=== PATIENT | male | born 2005 | race Caucasian/White ===

== ENCOUNTER 2025-02-06 12:30 | Outpatient (RCR) | payer OTHER, SELFPAY ==
[2025-01-24 09:36] VITALS: BMI 22.8
[2025-01-24 09:37] VITALS: BP 100/62; PULSE 60; TEMP 36.9
--- NOTE | 2025-01-24 10:28 | PC.ADMIT ---
Patient is a 19 year old single male who was referred to [facility] by [facility]. According to [facility] records patient presented to the ER after ingesting 120-140 tabs 40 mg each of Fluoxetine in a suicide attempt. Patient posted on social media that he took an overdose of Fluoxetine. He was initially admitted to ICU on 12/21/24 before he was transferred to [facility] inpatient behavioral health unit. While in the ER patient reportedly presented with full body rigidity and stiffness with myoclonic jerking/possible seizure activity. O2 sats in the low 80's. Patient was intubated and sent to ICU for further management. I asked patient what happened prior to hospitalization. Patient stated, I had overdosed because I did not want to be around anymore and felt like a burden to everyone and my family really wasn't listening. Patient reports hospitalization was, a little helpful mainly because I got to talk to people who have a similar mindset made me feel I was not alone . Patient reports he is doing much better and wants to do this program to make sure he stays this way. Patient reports he lives with grandparents, mother, and 4 brothers. Supports, My mother has been there lately. Patient is alert and oriented x4. He is calm and cooperative. He presented with depressed mood and anxious affect. He was soft spoken. Patient denied SI, denied any plans or intention of killing himself, no HI. He was given a copy of his safety plan if needed. Medications updated with patient and discharge paperwork form [facility]. Patient reports he is taking medication as prescribed. He reports he uses marijuana twice a day.
--- NOTE | 2025-01-24 15:08 | HO.PHP ---
Client's case was reviewed and opened in teams.
--- NOTE | 2025-01-24 16:24 | P.HPPSP_ITS ---
HPI Date of Service: 01/24/25 Chief Complaint: MDD Sources of Information: patient interviewed, chart reviewed and crisis/core team assessment reviewed HPI Narrative: Mr Márquez is a 19 y/o SM who was referred to PHP for a step-down from [facility]. He had presented to the [facility] ED on 12/21/24 after ingesting 120-140 of his 40 mg fluoxetine tabs. He was intubated and admitted to the ICU. He reports that he texted his mom and other people goodbye and someone found him. He currently feels good to be alive and has come to the conclusion that he might as well live his life. He is future oriented and states that he wants to be a dad. Stressor precipitating the suicide attempt was being dumped by his gf of 2 yrs one week prior to the overdose. He reports that his depression started in childhood and he's always felt depressed to some degree, in the setting of a significant trauma hx. Depressed mood has been a/w feelings of hopelessness, helplessness, anhedonia, low energy, low appetite/poor po intake and intermittent SI. Smokes MJ qam to feel more relaxed and self confident. Sleep is variable. Pt primarily socializes through video games. He was in the band in and played multiple instruments Psychiatric ROS: Denies h/o of jacklyn or psychosis Endorses social anxiety Current Psychotropic Meds: hydroxyzine pamoate 25 mg q hrs prn for anxiety, trazodone 50 mg qhs prn for insomna Past Psychiatric History: No outpatient mental health providers PCP: Ken Young MD in [place], [place] Suicide attempt 4 yrs ago by jumping off a bridge, resulting in fractured growth plate on his hand. He went to a bridge one year ago with thoughts to jump but avoided doing so. [facility], [facility] Medical History (Updated 04/09/25 @ 11:17 by Priscila Garcia MD) No known health problems Social History: [place]/R in [place], primarily raised by mother and grandparents. Currently lives with maternal grandparents, mother and 2 half-brothers. Substance History: smokes MJ qam Rare ETOH use- doesn't want to mix with his meds Trauma History: endorses h/o trauma Diagnostics Vital Signs (24Hr): Vital Signs - 24 hr 01/24/25 09:37 Temperature 98.4 F Pulse Rate 60 Blood Pressure 100/62 BMI result Body Mass Index 22.8 Meds/Allergies Meds Home Medications ?Medication ?Instructions ?Recorded ?Confirmed ?Type fluticasone propionate 50 2 spray intranasal DAILY 02/07/25 History mcg/actuation nasal spray,suspension hydroxyzine HCl 25 mg tablet 25 mg PO DAILY PRN anxiet y 02/07/25 02/07/25 History Allergies Allergies Allergy/AdvReac Type Severity Reaction Status Date / Time amoxicillin Allergy Unknown Verified 02/07/25 14:35 cefdinir (From Omnicef) Allergy Unknown Verified 02/07/25 14:35 Penicillins (PCN) Allergy Unknown Verified 02/07/25 14:35 Mental Status Exam Mental Status Exam Narrative: Appearance: Casually dressed. Grooming/hygiene wnl. Good eye contact Attitude:Cooperative Speech: Fluent and wnl in regard to volume, tone, prosody Motor activity: Calm and without any tics, tremors or dyskinesias. Steady gait Mood: better Affect: appropriate, reactive Thought process: goal directed and without evidence of formal thought disorder Thought content: Denies SI/violent ideation. Future oriented Perception: Denies AH/VH and does not appear to respond to internal stimuli Alert/oriented in all spheres Cognition grossly intact Insight: intact Judgment: intact Assessment & Plan Assessment & Plan (1) Major depressive disorder, recurrent, moderate: Status: Acute Code(s): F33.1 - Major depressive disorder, recurrent, moderate (2) MARTY (generalized anxiety disorder): Status: Acute Code(s): F41.1 - Generalized anxiety disorder Plan Admit to [facility] reviewed continue regular medications for now Routine lab work as indicated EKG, routine for baseline QTc for medication considerations as indicated UDS as indicated [facility] reviewed Continue to monitor as per protocol Patient educated on: diagnosis and medication risk/benefits Informed Consent: understands Reason for continued partial hosp. stay Substantial Risk for: med/psych decompensation Certification I certify that partial hospital treatment is medically necessary due to the symptoms and problems resulting from the patient's mental illness and the failure to treat the patient at the partial hospital level of care would likely result in the patient requiring inpatient psychiatric care which could not be prevented at a less intensive level of care. Time Spent With Patient Time: Total time managing care of this patient today ____ minutes.
--- NOTE | 2025-02-01 10:00 | PC.NURSE ---
I called Mary's mother Elise to f/u with a conversation she had with [facility] staff August via telephone regarding Mary's c/o light sensitivity and a migraine headache. I called and spoke to Elise who reports Mary started a new medication hydroxyzine prescribed by his PCP. She thinks the hydroxyzine could be causing his symptoms which I agreed. Elise stated she is holding the medication for now. She has a call out to his PCP and is awaiting a call back regarding recommendations. Dr. Booth is aware.
--- NOTE | 2025-02-07 09:51 | HO.PHP ---
In agreement with program staff and psychiatrist, this software writer reached out to [place] [employer] and spoke with dispatcher Olaf at approximately 9:45am. Information was obtained and well being check was initiated. Awaiting update on pt's status.
--- NOTE | 2025-02-07 11:39 | HO.PHP ---
This senior medical writer reached back out to [place] dispatch because no return call was noted. Disptadunia Babin told this senior medical writer that he was deemed safe at about 10:51, and he was advised to call the program back. [facility] staff to reach out to him as he has not called at this time.
--- NOTE | 2025-02-07 15:20 | HO.PHP ---
[facility] staff member reached out to Mary due to him not following up with the program after the wellness check was completed. PHP staff member explored why he didn't attend program today. Mary voiced that he was feeling sick and couldn't get out of bed. PHP staff member assessed if this was due to medications. Mary said it is not med related and it is due to whats going on in the news currently. PHP staff member assessed safety, in which he reported no concerns around SI, plan or intent. Mary was encouraged to come into the program to meet with Dr. Booth. Mary was in agreement.
== END 2025-02-06 23:59 | disposition home or self-care (01) ==
LOC: HO.PHPA 12:30
PROVIDERS: Visit Provider Psychiatry & Neurology Psychiatry
DX: F33.1 Major depressive disorder, recurrent, moderate (principal); F41.1 Generalized anxiety disorder; Z91.51 Personal history of suicidal behavior; Z79.899 Other long term (current) drug therapy
CPT/HCPCS: 90791; 90853

== ENCOUNTER → 2025-02-06 12:30 | Outpatient (BNV) | payer OTHER, SELFPAY | PROVIDERS: Visit Provider Psychiatry & Neurology Psychiatry | DX: F33.1 Major depressive disorder, recurrent, moderate (principal); F41.1 Generalized anxiety disorder | CPT/HCPCS: 99204 ==

== ENCOUNTER 2025-02-07 14:16 | Emergency (ER) | payer OTHER, SELFPAY ==
[2025-02-07 14:32] VITALS: BP 121/58; PULSE 76; RESP 16; TEMP 36.4; O2SAT 98; BMI 23.7
--- NOTE | 2025-02-07 15:02 | ED_ITS ---
[facility] - General Adult General Chief complaint: Psychiatric Symptoms Stated complaint: psych eval Time Seen by Provider: 02/07/25 14:41 Source: patient Mode of arrival: ambulatory Limitations: no limitations History of Present Illness ED Provider: Dr. Handy [facility] narrative: This is a 20-year-old male presented hospital today for evaluation of depression. Patient was placed on section 12 by his counselor for some reason. Patient denies any suicide ideation. Patient denies any thoughts of harming himself or others. He stated that he already discuss with with the crisis care team here. They will plan to discuss a safe discharge plan with his mother. Patient stated that he is was coming from a program. They sent him non sections just so he could get evaluated here. Related Data Home Medications ?Medication ?Instructions ?Recorded ?Confirmed fluticasone propionate 50 2 spray intranasal DAILY 02/07/25 mcg/actuation nasal spray,suspension hydroxyzine HCl 25 mg tablet 25 mg PO DAILY PRN anxiet y 02/07/25 02/07/25 Previous Rx's ?Medication ?Instructions ?Recorded sertraline 50 mg tablet 50 mg PO DAILY #14 tabs 08/21 Allergies Allergy/AdvReac Type Severity Reaction Status Date / Time amoxicillin Allergy Unknown Verified 02/07/25 14:35 cefdinir (From Omnicef) Allergy Unknown Verified 02/07/25 14:35 Penicillins (PCN) Allergy Unknown Verified 02/07/25 14:35 Review of Systems Review of Systems: Pertinent review of systems as mentioned in HPI. All other system otherwise negative. [facility] Past Medical History [facility] Narrative: Medical history as mentioned in [facility] Medical History (Updated 02/07/25 @ 15:40 by Cecelia Handy DO) No known health problems Social History Social History Household Members: Family Patient Tobacco Use Status: Never used Tobacco Tobacco use type: Cigarette Smoked in Last 30 Days: No Use of substances other than those prescribed or required for medical reasons: Yes Substance Use Type: Marijuana Substance Use Frequency: Occasionally Advance Directives: No Advance Directives Information Provided: No Physical Exam ED Exam Exam: General: Pleasant, no distress, interacting appropriately Head: Normacephalic, atraumatic ENT: oral mucosa moist, neck supple, no tracheal deviation Cardiovascular: regular rate, regular rhythm, no murmurs, rubbing, gallops Respiratory: CTAB, no wheeze, rales, rhonchi Neurological: Awake and alert, no facial droop noted Skin: Warm and dry Psychiatric: Endorses increased stress and depression. Denies SI or HI Vital Signs: Vital Signs - 24 hr 02/07/25 14:32 02/07/25 16:17 Temperature 97.6 F 97.6 F Pulse Rate 76 76 Respiratory Rate 16 16 Blood Pressure 121/58 L 121/58 L Pulse Oximetry 98 98 Oxygen Delivery Method Room Air BMI result Body Mass Index 23.7 Medical Decision Making Medical Decision Making MDM Narrative: This is a 20-year-old male presented hospital today under section from his program. Patient is medically cleared by me crisis team recommendations pending at this time. He denies SI or HI to me. I do not think patient requires acute inpatient psychiatric evaluation at this time. We will discuss the plan further with the crisis team. Patient is cleared by crisis team. I think this is appropriate. Patient will be discharged. He will be linked up with outpatient resource as well. Consult Healthcare Provider Crisis team Discharge Plan Discharge Clinical Impression: Depression Qualifiers: Depression Type: unspecified Qualified Code(s): F32.A - Depression, unspecified Patient Disposition: Home, Self-Care Prescriptions: No Action fluticasone propionate 50 mcg/actuation spray,suspension 2 spray intranasal DAILY sertraline 50 mg tablet 50 mg PO DAILY Qty: 14 0RF hydroxyzine HCl 25 mg tablet 25 mg PO DAILY PRN (Reason: anxiety) Interventions: [place]-Suicide Risk Severity Scale Last Done: 02/07/25 14:55 ED Discharge Assessment Last Done: 02/07/25 16:17 Discharge Date/Time: 02/07/25 16:23 Print Language: Portuguese
[2025-02-07 16:17] VITALS: BP 121/58; PULSE 76; RESP 16; TEMP 36.4; O2SAT 98
== END 2025-02-07 16:23 | disposition home or self-care (01) ==
LOC: HO.ED 16:13
PROVIDERS: Emergency Provider Student in an Organized Health Care Education/Training Program; PCP Pediatrics Adolescent Medicine
DX: F32.A Depression, unspecified (principal); Z79.899 Other long term (current) drug therapy
CPT/HCPCS: 99284; S9485